=== PATIENT | female | born 1980 ===

== ENCOUNTER 2023-02-21 20:23 | Emergency (ER) | payer SELFPAY ==
[2023-02-21] MEDS ORDERED: Diphtheria,Pertussis(Acell),Tetanus Vaccine 0.5 ML Syringe IM ONE (20:30)
[2023-02-21 21:32] VITALS: BP 144/88; PULSE 77
== END 2023-02-21 21:28 | disposition home or self-care (01) ==
LOC: MW.ED 20:23
DX: S01.81XA Laceration without foreign body of other part of head, initial encounter (principal); Z23 Encounter for immunization; W20.8XXA Other cause of strike by thrown, projected or falling object, initial encounter; Y93.64 Activity, baseball
CPT/HCPCS: 12013; 90471; 90715; 99282-25; 99283